=== PATIENT | male | born 1985 | race Hispanic/Latino ===

== ENCOUNTER 2020-10-09 18:26 | Emergency (ER) | payer SELFPAY | END 2020-10-09 19:40 | disposition home or self-care (01) | LOC: ERS 18:26 | DX: R21 Rash and other nonspecific skin eruption (principal) | CPT/HCPCS: 99282 ==

== ENCOUNTER 2020-12-23 12:23 | Emergency (ER) | payer SELFPAY | END 2020-12-23 13:20 | disposition home or self-care (01) | LOC: ERS 12:23 | DX: R21 Rash and other nonspecific skin eruption (principal) | CPT/HCPCS: 99282 ==

== ENCOUNTER 2022-04-04 02:24 | Emergency (ER) | payer SELFPAY | END 2022-04-04 02:38 | LOC: ERS 02:24 | DX: S00.03XA Contusion of scalp, initial encounter (principal); S00.83XA Contusion of other part of head, initial encounter; X58.XXXA Exposure to other specified factors, initial encounter | CPT/HCPCS: 99283 ==